=== PATIENT | female | born 1930 | race Caucasian/White ===

== ENCOUNTER 2016-06-02 15:13 | Emergency (ER) | payer MEDICARE ==
[~2016-06-02] VITALS: Ht 165.1 cm; Wt 70.0 kg
[~2016-06-02 15:13] MED LIST: ALTA1.256 PO; GLIM1 PO; LANO0.2510 PO; TOPR50TA PO
[2016-06-02 15:16] VITALS: BP 131/74; PULSE 73; RESP 20; TEMP 98.4; O2SAT 100
[2016-06-02] MEDS ORDERED: PANTOPRAZOLE SODIUM 40 MG VIAL IVP ONE (15:30)
[2016-06-02] MEDS ORDERED: SODIUM CHLORIDE 0.9% FLUSH 5 ML FLUSH IVF PRN (15:30)
[2016-06-02] MEDS ORDERED: SPIR25TA PO (15:40)
[2016-06-02] MEDS ORDERED: GLIM1TAB PO (15:40)
[2016-06-02] MEDS ORDERED: DIGO0.25 PO (15:40)
[2016-06-02] MEDS ORDERED: METO25TA6 PO (15:40)
[2016-06-02 15:41] VITALS: BP 148/62; PULSE 70; RESP 18; O2SAT 99
[2016-06-02 15:45] VITALS: O2SAT 99
--- NOTE | 2016-06-02 15:45 | PD ---
HPI . Black tarry stools Chief Complaint: GI Complaint Time Seen by Provider: 15:25 Travel History International Travel<30 days: No Contact w/Intl Traveler<30days: No Traveled to known affect area: No History of Present Illness HPI Patient presents with black tarry stools which started yesterday. She reports approximately 8 stools. She denies any associated symptoms such as abdominal pain, vomiting, dizziness, chest pain or shortness of breath. She does report a prior previous similar episode. She was evaluated in [place]. She also states she has a history of iron deficiency anemia and receives IV ferritin periodically. She states that she is not on oral iron. PFSH Past Medical History Atrial Fibrillation: Yes Heart Rhythm Problems: Yes Cancer: Yes (left breast 1998) Chemotherapy: No Diabetes: Yes Radiation Therapy: No Menopausal: Yes Past Surgical History Gynecologic Surgery: Yes (left mastectomy breast cancer) Hysterectomy: Yes Social History Alcohol Use: No Tobacco Use: No Substance Use: No Allergies-Medications (Allergen,Severity, Reaction): Coded Allergies: Penicillin (Verified Allergy, Severe, UNKNOWN REACTION, 06/28/14) Sulfa (Verified Allergy, Severe, Anaphylaxis, 06/28/14) Aspirin (Verified Allergy, Unknown, LOW PLATELT COUNT , 06/02/16) Levaquin (Verified Allergy, Unknown, STOP BREATHING, 06/02/16) Reported Meds & Prescriptions Reported Meds & Active Scripts Active Prilosec (Omeprazole) 20 Mg Cap 20 Mg PO DAILY Reported Furosemide 20 Mg Tab 20 Mg PO DAILY Metoprolol Succinate ER 24 HR (Metoprolol Succinate) 25 Mg Tab 25 Mg PO BID Spironolactone 25 Mg Tab 25 Mg PO BIDPC Glimepiride 1 Mg Tab 2 Mg PO DAILY PRN Take with breakfast or first main meal Digoxin 0.25 Mg Tab 0.125 Mg PO DAILY Review of Systems Except as stated in HPI: all other systems reviewed are Neg General / Constitutional: No: Fever, Chills HENT: No: Headaches Cardiovascular: No: Chest Pain or Discomfort Respiratory: No: Shortness of Breath Gastrointestinal: Positive: Other (black stools), No: Nausea, Vomiting, Diarrhea, Abdominal Pain, Constipation, Changes in Bowel Habits, Indigestion Neurologic: No: Weakness, Dizziness Physical Exam Narrative GENERAL: Healthy-appearing older woman in no acute distress. SKIN: Warm and dry. HEAD: Atraumatic. Normocephalic. EYES: Pupils equal and round. Conjunctivae are pink ENT: No nasal bleeding or discharge. Mucous membranes pink and moist. NECK: Trachea midline. Neck is supple. CARDIOVASCULAR: Regular rate and rhythm. Heart sounds are normal. RESPIRATORY: No accessory muscle use. Lungs are clear with full air movement throughout. GASTROINTESTINAL: Abdomen soft, non-tender, nondistended. MUSCULOSKELETAL: No obvious deformities. No edema. NEUROLOGICAL: Awake and alert. No obvious cranial nerve deficits. Motor grossly within normal limits. Normal speech. PSYCHIATRIC: Appropriate mood and affect; insight and judgment normal. Data Data Last Documented VS Vital Signs Date Time Temp Pulse Resp B/P Pulse Ox O2 Delivery O2 Flow Rate FiO2 06/02/16 16:10 66 18 119/56 95 Room Air 06/02/16 15:16 98.4 Orders Basic Metabolic Panel (Bmp) (06/02/16 15:26) Complete Blood Count With Diff (06/02/16 15:26) Prothrombin Time / Inr (Pt) (06/02/16 15:26) Act Partial Throm Time (Ptt) (06/02/16 15:26) Type And Screen (06/02/16 15:26) Ecg Monitoring (06/02/16 15:26) Iv Access Insert/Monitor (06/02/16 15:26) Oximetry (06/02/16 15:26) Pantoprazole Inj (Protonix Inj) (06/02/16 15:30) Sodium Chloride 0.9% Flush (Ns Flush) (06/02/16 15:30) Ct Abd/Pel W Iv Contrast(Rout) (06/02/16 15:40) Iohexol 350 Inj (Omnipaque 350 Inj) (06/02/16 17:18) Radiology Film Requests (06/02/16 ) Labs Laboratory Tests Test 06/02/16 15:57 White Blood Count 3.8 TH/MM3 Red Blood Count 4.34 MIL/MM3 Hemoglobin 11.1 GM/DL Hematocrit 34.5 % Mean Corpuscular Volume 79.4 FL Mean Corpuscular Hemoglobin 25.6 PG Mean Corpuscular Hemoglobin 32.3 % Concent Red Cell Distribution Width 22.1 % Platelet Count 74 TH/MM3 Mean Platelet Volume 8.9 FL Neutrophils (%) (Auto) 62.0 % Lymphocytes (%) (Auto) 27.5 % Monocytes (%) (Auto) 8.5 % Eosinophils (%) (Auto) 1.5 % Basophils (%) (Auto) 0.5 % Neutrophils # (Auto) 2.4 TH/MM3 Lymphocytes # (Auto) 1.0 TH/MM3 Monocytes # (Auto) 0.3 TH/MM3 Eosinophils # (Auto) 0.1 TH/MM3 Basophils # (Auto) 0.0 TH/MM3 CBC Comment AUTO DIFF Differential Comment AUTO DIFF CONFIRMED Platelet Estimate LOW Prothrombin Time 12.9 SEC Prothromb Time International 1.2 RATIO Ratio Activated Partial 26.6 SEC Thromboplast Time Sodium Level 142 MEQ/L Potassium Level 3.7 MEQ/L Chloride Level 105 MEQ/L Carbon Dioxide Level 28.7 MEQ/L Anion Gap 8 MEQ/L Blood Urea Nitrogen 5 MG/DL Creatinine 0.71 MG/DL Estimat Glomerular Filtration 79 ML/MIN Rate Random Glucose 143 MG/DL Calcium Level 8.4 MG/DL Blood Type A NEGATIVE Antibody Screen NEGATIVE MDM Medical Decision Making Medical Screen Exam Complete: Yes Emergency Medical Condition: Yes Differential Diagnosis Differential diagnosis includes but is not limited to black stools due to food or medication, upper GI bleed Narrative Course Patient presents for evaluation of black stools. She appears hemodynamically stable at this time. CBC & BMP Diagram 06/02/16 15:57 This H&H is actually pretty stable for her. Patient has been in the emergency department for a couple of hours now. She is very spry. She has been up walking around her room through her medical records that she brought with her from [place]. She does not appear to be in any distress at all. Last Impressions Abdomen/Pelvis CT 06/02/16 1540 Signed Impressions: Service Date/Time: Thursday, June 02, 2016 16:44 - CONCLUSION: 1. Diverticulosis. Evaluation for diverticulitis is limited due to ascites. 2. Cirrhosis with small moderate amount of abdominal ascites and portal hypertension. 3. Minimally complex cystic lesion in the right lobe of the liver , likely benign. Luis Younger MD [facility] Point of Care Internal Pos. & Neg. Controls: Passed Fecal Specimen Occult Blood: Positive Diagnosis Primary Impression: GI bleed Qualified Code: K92.2 - Gastrointestinal hemorrhage, unspecified gastrointestinal hemorrhage type Patient Instructions: General Instructions Additional Instructions: Avoid aspirin and other nonsteroidal anti-inflammatory agent such as ibuprofen and Naprosyn. You may take aspirin as needed for your heart. Nexium as directed. Seek immediate medical care for heavy bleeding or if you become weak or dizzy or you develop chest pain or shortness of breath. Follow-up with your doctor in [place] further evaluation. Scripts Omeprazole (Prilosec)20 Mg Cap20 Mg PO DAILY #30 CAP Ref 0 Prov:Sabrina Clarke MD 06/02/16 Disposition: 01 DISCHARGE HOME Condition: Stable Sabrina Clarke MD Jun 02, 2016 15:44
[2016-06-02 16:10] VITALS: BP 119/56; PULSE 66; RESP 18; O2SAT 95
[2016-06-02 16:11] LABS: AUTOMATED NEUTROPHIL # 2.4 TH/MM3 (1.8-7.7); BASOPHIL % 0.5 % (0.0-2.0); EOSINOPHIL # 0.1 TH/MM3 (0-0.4); EOSINOPHIL % 1.5 % (0.0-4.0); HEMATOCRIT 34.5 % (35.0-46.0); LYMPH % 27.5 % (9.0-44.0); MEAN CELL VOLUME 79.4 FL (80.0-100.0); MEAN CORPUSCULAR HEMOGLOBIN 25.6 PG (27.0-34.0); MEAN CORPUSCULAR HGB CONC 32.3 % (32.0-36.0); MONO % 8.5 % (0.0-8.0); PLATELET COUNT 74 TH/MM3 (150-450); RED BLOOD COUNT 4.34 MIL/MM3 (4.00-5.30); RED CELL DISTRIBUTION WIDTH 22.1 % (11.6-17.2); WHITE BLOOD COUNT 3.8 TH/MM3 (4.0-11.0)
[2016-06-02 16:12] LABS: HEMO FLAGS AUTO DIFF
[2016-06-02 16:19] LABS: POTASSIUM 3.7 MEQ/L (3.5-5.1)
[2016-06-02 16:22] LABS: BICARBONATE 28.7 MEQ/L (21.0-32.0)
[2016-06-02 16:23] LABS: APTT (PATIENT) 26.6 SEC (24.3-30.1); INTERNATIONAL NORMALIZED RATIO 1.2 RATIO; PROTHROMBIN TIME - PATIENT 12.9 SEC (9.8-11.6)
[2016-06-02 16:58] LABS: PLATELET ESTIMATE SMEAR LOW (NORMAL); SCAN/DIFF AUTO DIFF CONFIRMED
[2016-06-02] MEDS ORDERED: FURO20TA PO (17:06)
[2016-06-02] MEDS ORDERED: IOHEXOL 350 MG/ML 10 ML VIAL (for RAD DIAG) IV ONE (17:18)
[2016-06-02] MEDS ORDERED: PRIL20CA9 PO (17:24)
--- NOTE | 2016-06-02 17:27 | RADHPO ---
EXAM DATE/TIME: 06/02/2016 16:44 [facility] COMPARISON: No previous studies available for comparison. INDICATIONS : Blood in stool. IV CONTRAST: 75 cc Omnipaque 350 (iohexol) IV ORAL CONTRAST: No oral contrast ingested. RADIATION DOSE: 14.56 CTDIvol (mGy) MEDICAL HISTORY : Diabetes mellitus type 2. Cardiovascular disease Carcinoma, breast. SURGICAL HISTORY : Mastectomy, left. Hysterectomy. ENCOUNTER: Initial ACUITY: 1 day PAIN SCALE: 0/10 LOCATION: Bilateral lower quadrant TECHNIQUE: Volumetric scanning of the abdomen and pelvis was performed. Using automated exposure control and ad justment of the mA and/or kV according to patient size, radiation dose was kept as low as reasonably achievable to obtain optimal diagnostic quality images. FINDINGS: LOWER LUNGS: The visualized lower lungs are clear. LIVER: Shrunken cirrhotic liver. Minimally complex low density lesion posterior segment right lobe measures 1.7 cm. Few other subcentimeter low densities.. There is no dilation of the biliary tree. No calcif ied gallstones. Small moderate ascites. Upper quadrant varices. Recanalization umbilical vein. SPLEEN: Mildly enlarged containing calcified granulomas. PANCREAS: Within normal limits. KIDNEYS: Normal in size and shape. There is no mass, stone or hydronephrosis. ADRENAL GLANDS: Within normal limits. VASCULAR: There is no aortic aneurysm. BOWEL/MESENTERY: One without diverticulitis. There is no free intraperitoneal air or fluid. ABDOMINAL WALL: Within normal limits. RETROPERITONEUM: There is no lymphadenopathy. BLADDER: No wall thickening or mass. REPRODUCTIVE: Within normal limits. INGUINAL: There is no lymphadenopathy or hernia. MUSCULOSKELETAL: Within normal limits for patient age. CONCLUSION: 1. Diverticulosis. Evaluation for diverticulitis is limited due to ascites. 2. Cirrhosis with small moderate amount of abdominal ascites and portal hypertension. 3. Minimally complex cystic lesion in the right lobe of the liver, likely benign. Luis Younger MD on June 02, 2016 at 17:19 Board Certified Radiologist. This report was verified electronically.
== END 2016-06-02 17:53 | disposition home or self-care (01) ==
LOC: PHED 15:13
DX: K92.2 Gastrointestinal hemorrhage, unspecified (principal); K57.90 Diverticulosis of intestine, part unspecified, without perforation or abscess without bleeding; K74.60 Unspecified cirrhosis of liver; R18.8 Other ascites; E11.9 Type 2 diabetes mellitus without complications; Z79.84 Long term (current) use of oral hypoglycemic drugs; Z86.2 Personal history of diseases of the blood and blood-forming organs and certain disorders involving the immune mechanism; Z86.79 Personal history of other diseases of the circulatory system; Z85.3 Personal history of malignant neoplasm of breast
CPT/HCPCS: 74177; 80048; 85025; 85610; 85730; 86850; 86900; 86901; 96374; 99285; C9113; Q9967

== ENCOUNTER 2016-08-04 08:25 | Observation (INO) | payer MEDICARE ==
[~2016-08-04] VITALS: Ht 162.6 cm; Wt 67.2 kg
[2016-08-04] VITALS (8 sets, daily range): BP systolic 112–147; BP diastolic 57–68; PULSE 65–72; RESP 16–18; TEMP 97–97.8; O2SAT 98–100
[~2016-08-04 08:25] MED LIST changes: -ALTA1.256 PO; +DIGO0.25 PO; +FURO20TA PO; -GLIM1 PO; +GLIM1TAB PO; -LANO0.2510 PO; +METO25TA6 PO; +PRIL20CA9 PO; +SPIR25TA PO; -TOPR50TA PO
[2016-08-04] MEDS ORDERED: SODIUM CHLORIDE 0.9% FLUSH 10 ML FLUSH IVF PRN (08:45)
[2016-08-04] MEDS ORDERED: NITROGLYCERIN 0.4 MG SL 25 TABS/BTL SL PRN (08:45)
--- NOTE | 2016-08-04 08:46 | PD ---
HPI Chief Complaint: Chest Pain Time Seen by Provider: 08:30 Travel History International Travel<30 days: No Contact w/Intl Traveler<30days: No History of Present Illness HPI 85yo F with PMH of DM, HTN, afib on digoxin presents to the ED with c/o left sided chest pain when she woke up this morning at 5:15am. Pt is left sided, intermittent, lasting few seconds at a time and nonradiating. Denies any sob, nausea, diaphoresis, focal weakness or numbness, fever, abdominal pain. Pt has been coughing more. Former cig smoker. Pt states she has not had similar chest pains and has not had any stress test. 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 PFSH Past Medical History Atrial Fibrillation: Yes Heart Rhythm Problems: Yes Cancer: Yes (left breast 1999) Chemotherapy: No Diabetes: Yes Radiation Therapy: No Menopausal: Yes Past Surgical History Gynecologic Surgery: Yes (left mastectomy breast cancer) Hysterectomy: Yes Social History Alcohol Use: No Tobacco Use: No Substance Use: No Allergies-Medications (Allergen,Severity, Reaction): Coded Allergies: Penicillin (Verified Allergy, Severe, UNKNOWN REACTION, 08/04/16) Sulfa (Verified Allergy, Severe, Anaphylaxis, 08/04/16) Aspirin (Verified Allergy, Unknown, LOW PLATELT COUNT , 08/04/16) Levaquin (Verified Allergy, Unknown, STOP BREATHING, 08/04/16) Reported Meds & Prescriptions Reported Meds & Active Scripts Active Prilosec (Omeprazole) 20 Mg Cap 20 Mg PO DAILY Reported Furosemide 20 Mg Tab 20 Mg PO DAILY Metoprolol Succinate ER 24 HR (Metoprolol Succinate) 25 Mg Tab 25 Mg PO BID Spironolactone 25 Mg Tab 25 Mg PO BIDPC Glimepiride 1 Mg Tab 2 Mg PO DAILY PRN Take with breakfast or first main meal Digoxin 0.25 Mg Tab 0.125 Mg PO DAILY Review of Systems Except as stated in HPI: all other systems reviewed are Neg Physical Exam Narrative GENERAL: 85yo F not in distress. SKIN: Focused skin assessment warm/dry. HEAD: Atraumatic. Normocephalic. EYES: Pupils equal and round. No scleral icterus. No injection or drainage. ENT: No nasal bleeding or discharge. Mucous membranes pink and moist. NECK: Trachea midline. No JVD. CARDIOVASCULAR: Regular rate and rhythm. + murmur appreciated. CHEST WALL: No rash, erythema or ttp. RESPIRATORY: No accessory muscle use. Clear to auscultation. Breath sounds equal bilaterally. GASTROINTESTINAL: Abdomen soft, non-tender, nondistended. MUSCULOSKELETAL: No obvious deformities. No clubbing. No cyanosis. No edema. NEUROLOGICAL: Awake and alert. No obvious cranial nerve deficits. Motor grossly within normal limits. Normal speech. PSYCHIATRIC: Appropriate mood and affect; insight and judgment normal. Data Data Last Documented VS Vital Signs Date Time Temp Pulse Resp B/P Pulse Ox O2 Delivery O2 Flow Rate FiO2 08/04/16 09:46 69 16 136/57 100 Nasal Cannula 2 08/04/16 08:41 97.8 Orders Basic Metabolic Panel (Bmp) (08/04/16 08:39) Ckmb (Isoenzyme) Profile (08/04/16 08:39) Complete Blood Count With Diff (08/04/16 08:39) Digoxin (08/04/16 08:39) Magnesium (Mg) (08/04/16 08:39) Prothrombin Time / Inr (Pt) (08/04/16 08:39) Act Partial Throm Time (Ptt) (08/04/16 08:39) Troponin I (08/04/16 08:39) Chest, Single Ap (08/04/16 08:39) Ecg Monitoring (08/04/16 08:39) Bilateral Bp Monitoring (08/04/16 08:39) Iv Access Insert/Monitor (08/04/16 08:39) Oximetry (08/04/16 08:39) Oxygen Administration (08/04/16 08:39) Sodium Chloride 0.9% Flush (Ns Flush) (08/04/16 08:45) Nitroglycerin Sl (Nitrostat Sl) (08/04/16 08:45) CKMB (08/04/16 08:40) CKMB% (08/04/16 08:40) Admit Order (Ed Use Only) (08/04/16 09:58) Labs Laboratory Tests Test 08/04/16 08:40 White Blood Count 5.4 TH/MM3 Red Blood Count 4.65 MIL/MM3 Hemoglobin 12.4 GM/DL Hematocrit 37.9 % Mean Corpuscular Volume 81.6 FL Mean Corpuscular Hemoglobin 26.8 PG Mean Corpuscular Hemoglobin 32.8 % Concent Red Cell Distribution Width 16.6 % Platelet Count 91 TH/MM3 Mean Platelet Volume 9.1 FL Neutrophils (%) (Auto) 75.3 % Lymphocytes (%) (Auto) 14.7 % Monocytes (%) (Auto) 8.4 % Eosinophils (%) (Auto) 0.8 % Basophils (%) (Auto) 0.8 % Neutrophils # (Auto) 4.1 TH/MM3 Lymphocytes # (Auto) 0.8 TH/MM3 Monocytes # (Auto) 0.5 TH/MM3 Eosinophils # (Auto) 0.0 TH/MM3 Basophils # (Auto) 0.0 TH/MM3 CBC Comment AUTO DIFF Differential Comment AUTO DIFF CONFIRMED Platelet Estimate LOW Platelet Morphology Comment NORMAL Tear Drop Cells Ovalocytes 1+ Prothrombin Time 12.3 SEC Prothromb Time International 1.1 RATIO Ratio Activated Partial 26.0 SEC Thromboplast Time Sodium Level 139 MEQ/L Potassium Level 4.0 MEQ/L Chloride Level 105 MEQ/L Carbon Dioxide Level 27.3 MEQ/L Anion Gap 7 MEQ/L Blood Urea Nitrogen 10 MG/DL Creatinine 0.76 MG/DL Estimat Glomerular Filtration 73 ML/MIN Rate Random Glucose 154 MG/DL Calcium Level 8.8 MG/DL Magnesium Level 1.7 MG/DL Total Creatine Kinase 111 U/L Creatine Kinase MB 0.8 NG/ML Troponin I LESS THAN 0.02 NG/ML Digoxin Level 2.2 NG/ML [facility] Medical Decision Making Medical Screen Exam Complete: Yes Emergency Medical Condition: Yes Interpretation(s) EKG: NSR 68bpm. LAD. 1st AV block. Mild ST depression V4-V6. Vital Signs Date Time Temp Pulse 16 136/57 100 Nasal Cannula 2 08/04/16 08:56 16 99 Nasal Cannula 2 08/04/16 08:53 16 99 Nasal Cannula 2 08/04/16 08:53 99 Nasal Cannula 2 08/04/16 08:51 72 16 137/68 98 Room Air 131/62 08/04/16 08:41 97.8 70 16 147/67 100 Last Impressions Chest X-Ray 08/04/16 0839 Signed Impressions: Service Date/Time: Thursday, August 04, 2016 09:09 - CONCLUSION: No acute cardiopulmonary abnormality is identified. William Faustin MD Differential Diagnosis ACS vs. pneumonia vs. musculoskeletal pain vs. GERD Narrative Course 85yo F with afib, HTN here with left sided chest pain upon waking up today. Labs reviewed, no leukocytosis. Troponin negative. Digoxin mildly elevated at 2.2. CXR showed no acute cardiopulmonary abnormality. Pt is allergic to aspirin and ordered nitroglycerin sublingual PRN chest pain. VS stable. Discussed with Dr. Davis and accepted to his service for chest pain work up. Diagnosis Primary Impression: Chest pain Qualified Code: R07.9 - Chest pain, unspecified type Admitting Information Admitting Physician Requests: Aby Escobar DO Aug 04, 2016 08:46
[2016-08-04 08:53] LABS: AUTOMATED NEUTROPHIL # 4.1 TH/MM3 (1.8-7.7); BASOPHIL % 0.8 % (0.0-2.0); EOSINOPHIL % 0.8 % (0.0-4.0); HEMATOCRIT 37.9 % (35.0-46.0); LYMPH % 14.7 % (9.0-44.0); LYMPHOCYTE # 0.8 TH/MM3 (1.0-4.8); MEAN CELL VOLUME 81.6 FL (80.0-100.0); MEAN CORPUSCULAR HEMOGLOBIN 26.8 PG (27.0-34.0); MEAN CORPUSCULAR HGB CONC 32.8 % (32.0-36.0); MONO % 8.4 % (0.0-8.0); NEUT % 75.3 % (16.0-70.0); PLATELET COUNT 91 TH/MM3 (150-450); RED BLOOD COUNT 4.65 MIL/MM3 (4.00-5.30); RED CELL DISTRIBUTION WIDTH 16.6 % (11.6-17.2); WHITE BLOOD COUNT 5.4 TH/MM3 (4.0-11.0)
[2016-08-04 08:55] LABS: HEMO FLAGS AUTO DIFF
[2016-08-04 09:01] LABS: CHLORIDE 105 MEQ/L (98-107); SODIUM (NA) 139 MEQ/L (136-145)
[2016-08-04 09:04] LABS: ANION GAP 7 MEQ/L (5-15); BICARBONATE 27.3 MEQ/L (21.0-32.0); BLOOD UREA NITROGEN 10 MG/DL (7-18); MAGNESIUM 1.7 MG/DL (1.5-2.5)
[2016-08-04 09:06] LABS: INTERNATIONAL NORMALIZED RATIO 1.1 RATIO; PROTHROMBIN TIME - PATIENT 12.3 SEC (9.8-11.6)
[2016-08-04 09:07] LABS: GLOMERULAR FILTRATION RATE 73 ML/MIN (>89)
[2016-08-04 09:10] LABS: CREATINE KINASE 111 U/L (26-192)
[2016-08-04 09:19] LABS: OVALOCYTES 1+ (NORMAL); PLATELET ESTIMATE SMEAR LOW (NORMAL); PLATELET MORPHOLOGY NORMAL (NORMAL); SCAN/DIFF AUTO DIFF CONFIRMED
[2016-08-04 09:22] LABS: CKMB 0.8 NG/ML (0.5-3.6)
[2016-08-04 09:25] LABS: DIGOXIN 2.2 NG/ML (0.8-2.0)
--- NOTE | 2016-08-04 09:26 | RADHPO ---
EXAM DATE/TIME: 08/04/2016 09:09 [facility] COMPARISON: No previous studies available for comparison. INDICATIONS : Chest pressure/discomfort. MEDICAL HISTORY : Hypertension. Carcinoma, breast. A-Fib SURGICAL HISTORY : Tonsillectomy. Mastectomy, left. Total knee replacement, left. Hysterectomy. Lumpectomy. ENCOUNTER: Initial ACUITY: 1 day PAIN SCORE: 7/10 LOCATION: chest FINDINGS: Portable AP view of the chest demonstrates a normal-sized cardiac silhouette with calcification of th e aorta. No effusion, consolidation, or pneumothorax is visualized. The bones and soft tissues demons trate no acute abnormality. CONCLUSION: No acute cardiopulmonary abnormality is identified. William Faustin MD on August 04, 2016 at 9:23 Board Certified Radiologist. This report was verified electronically.
[2016-08-04] MEDS ORDERED: ACETAMINOPHEN 500 MG CPLT PO PRN (10:15)
[2016-08-04] MEDS ORDERED: MORPHINE SULFATE 4 MG/ML INJ IV PRN (10:15)
[2016-08-04] MEDS ORDERED: SODIUM CHLORIDE 0.9% FLUSH 10 ML FLUSH IV FLUSH PRN (10:15)
[2016-08-04] MEDS ORDERED: ENOXAPARIN SODIUM 100 MG/ML SYRINGE SQ SCH (11:00)
--- NOTE | 2016-08-04 13:24 | EKG ---
Date Performed: 08/04/2016 Time Performed: 08:31:00 PTAGE: 85 years EKG: Sinus rhythm with borderline 1st degree A-V block Inferior/lateral ST-T changes are nonspecific Borderline ECG NO PREVIOUS TRACING DOCTOR: Vladimir Palmer Interpretating Date/Time 08/04/2016 13:22:00
[2016-08-04 13:58] LABS: CREATINE KINASE 106 U/L (26-192)
--- NOTE | 2016-08-04 14:27 | HHI.HP ---
[facility] Service [facility] Primary Care Physician Non-Staff Admission Diagnosis Chest pain Diagnoses: (1) Chest pain Diagnosis: Principal (2) Hypertension Diagnosis: Secondary (3) Atrial fibrillation Diagnosis: Secondary (4) Diabetes Diagnosis: Secondary Chief Complaint: Chest pain Travel History International Travel<30 Days: No Contact w/Intl Traveler <30 Da: No Traveled to Known Affected Are: No History of Present Illness 85-year-old female with known history of hypertension, chronic atrial fibrillation, diabetes, family history heart disease who presented to hospital because of chest discomfort. Patient states that she woke up at 5:00 this morning and while she is lying in bed she felt a discomfort in the left side of her chest which she can't actually describe the type of pain, she states that it was not a sharp, pressure, squeezing type sensation. She could feel a discomfort in the left side of her chest without any radiation to the neck, back , shoulder, arm, she denied any nausea, vomiting, diaphoresis, shortness of breath, dyspnea. She states the pain will last for a couple seconds and then go away on its own. She states that that happened persistently throughout the morning. Because the pain would not go away and stay away she came to the hospital for evaluation. 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 She does not remember the last time that she had a stress test. Patient has been packing in preparation to go back to [place]. At the time evaluating patient she is asymptomatic. Review of Systems Constitutional: DENIES: Diaphoretic episodes, Fatigue, Fever, Weight gain, Weight loss, Chills, Dizziness, Change in appetite, Night Sweats Eyes: DENIES: Blurred vision, Diplopia, Eye inflammation, Eye pain, Vision loss , Double Vision Ears, nose, mouth, throat: DENIES: Vertigo, Nasal discharge, Throat pain, Ear Pain, Running Nose, Sinus Pain Respiratory: DENIES: Apneas, Cough, Snoring, Wheezing, Hemoptysis, Sputum production, Shortness of breath Cardiovascular: COMPLAINS OF: Chest pain, Claudication, DENIES: Palpitations, Syncope, Dyspnea on Exertion, Lower Extremity Edema, Orthopnea Gastrointestinal: DENIES: Abdominal pain, Black stools, Bloody stools, Constipation, Diarrhea, Nausea, Vomiting, Difficulty Swallowing, Anorexia Neurologic: DENIES: Abnormal gait, Headache, Localized weakness, Paresthesias, Seizures, Speech Problems, Tremor, Poor Balance Past Family Social History Past Medical History Hypertension Chronic atrial fibrillation Diabetes History of breast cancer Chemotherapy-induced cirrhosis Thrombocytopenia Iron deficient anemia Past Surgical History Left breast mastectomy Cataract surgery Left knee replacement Hysterectomy Tonsillectomy Reported Medications Reported Meds & Active Scripts Active Prilosec (Omeprazole) 20 Mg Cap 20 Mg PO DAILY Reported Furosemide 20 Mg Tab 20 Mg PO DAILY Metoprolol Succinate ER 24 HR (Metoprolol Succinate) 25 Mg Tab 25 Mg PO BID Spironolactone 25 Mg Tab 25 Mg PO BIDPC Glimepiride 1 Mg Tab 2 Mg PO DAILY PRN Take with breakfast or first main meal Digoxin 0.25 Mg Tab 0.125 Mg PO DAILY Allergies: Coded Allergies: Penicillin (Verified Allergy, Severe, UNKNOWN REACTION, 08/04/16) Sulfa (Verified Allergy, Severe, Anaphylaxis, 08/04/16) Aspirin (Verified Allergy, Unknown, LOW PLATELT COUNT , 08/04/16) Levaquin (Verified Allergy, Unknown, STOP BREATHING, 08/04/16) Family History Reviewed and significant for cancer, heart disease, myocardial infarction, coronary bypass surgery Social History Patient quit smoking when she is 42 years old, prior to that she smoked for 21 years at least 1 pack a cigarettes a day. She denies any alcohol or illicit drugs Physical Exam Vital Signs Vital Signs Date Time Temp Pulse Resp B/P Pulse Ox O2 Delivery O2 Flow Rate FiO2 08/04/16 12:00 97.0 72 18 135/64 99 08/04/16 09:46 69 16 136/57 100 Nasal Cannula 2 08/04/16 08:56 16 99 Nasal Cannula 2 08/04/16 08:53 16 99 Nasal Cannula 2 08/04/16 08:53 99 Nasal Cannula 2 08/04/16 08:51 72 16 137/68 98 Room Air 131/62 08/04/16 08:41 97.8 70 16 147/67 100 Physical Exam GENERAL: Well-developed, well-nourished, in no acute distress. alert and orientated HEENT: Head is normocephalic without any lesions or masses noted. Facial features are symmetric. Eyes: Pupils equal round reactive to light. Extraocular muscles are intact. Conjunctivae were clear. Oropharyngeal: Pharynx without any erythema edema. Tongue is midline without deviation. Buccal mucosa is moist without any masses or lesions NECK: Supple without any masses. Trachea midline no deviation. No JVD, no bruits are appreciated CARDIAC: Regular rhythm, regular rate. S1/S2 are heard. No murmurs gallops or rubs. LUNGS: Clear to auscultation bilaterally. No wheeze, rhonchi or rales. No use of accessory muscles on inspiration or expiration. ABDOMEN: Soft, nontender. Nondistended. Bowel sounds heard in all 4 quadrants. No organomegaly or masses. Negative rebound, negative guarding EXTREMITIES: No edema, pulses are equal bilaterally. No cyanosis or clubbing NEUROLOGY: Mood and affect appear appropriate. Cranial nerves II through XII grossly intact. Muscle strength 5/5 in upper and lower extremities bilaterally. Deep tendon reflexes are 2+ in upper and lower extremities bilaterally. Laboratory Laboratory Tests Test 08/04/16 08/04/16 08:40 13:30 White Blood Count 5.4 Red Blood Count 4.65 Hemoglobin 12.4 Hematocrit 37.9 Mean Corpuscular Volume 81.6 Mean Corpuscular Hemoglobin 26.8 Mean Corpuscular Hemoglobin 32.8 Concent Red Cell Distribution Width 16.6 Platelet Count 91 Mean Platelet Volume 9.1 Neutrophils (%) (Auto) 75.3 Lymphocytes (%) (Auto) 14.7 Monocytes (%) (Auto) 8.4 Eosinophils (%) (Auto) 0.8 Basophils (%) (Auto) 0.8 Neutrophils # (Auto) 4.1 Lymphocytes # (Auto) 0.8 Monocytes # (Auto) 0.5 Eosinophils # (Auto) 0.0 Basophils # (Auto) 0.0 CBC Comment AUTO DIFF Differential Comment AUTO DIFF CONFIRMED Platelet Estimate LOW Platelet Morphology Comment NORMAL Tear Drop Cells Ovalocytes 1+ Prothrombin Time 12.3 Prothromb Time International 1.1 Ratio Activated Partial 26.0 Thromboplast Time Sodium Level 139 Potassium Level 4.0 Chloride Level 105 Carbon Dioxide Level 27.3 Anion Gap 7 Blood Urea Nitrogen 10 Creatinine 0.76 Estimat Glomerular Filtration 73 Rate Random Glucose 154 Calcium Level 8.8 Magnesium Level 1.7 Total Creatine Kinase 111 106 Creatine Kinase MB 0.8 Troponin I LESS THAN 0.02 LESS THAN 0.02 Digoxin Level 2.2 Result Diagram: 08/04/16 0840 08/04/16 0840 Imaging Last Impressions Chest X-Ray 08/04/16 0839 Signed Impressions: Service Date/Time: Thursday, August 04, 2016 09:09 - CONCLUSION: No acute cardiopulmonary abnormality is identified. William Faustin MD Assessment and Plan Assessment and Plan 85-year-old male with known history of hypertension, chronic atrial fibrillation, chemotherapy-induced cirrhosis, pancytopenia who presented to hospital because of chest discomfort. Chest pain, atypical Patient with increased risk factors to include age, hypertension, diabetes, family history of heart disease, recent life stressors with in the family We'll continue to rule out for any acute coronary event with serial cardiac enzymes and serial EKGs We'll pursue nuclear stress test tomorrow a.m. if patient has been ruled out for acute coronary event Patient is allergic to aspirin, does have thrombocytopenia. Will continue nitroglycerin as needed. Continue metoprolol Hypertension/atrial fibrillation Continue home medication to include metoprolol, digoxin Diabetes Accu-Cheks with sliding scale insulin Hold by mouth medications at this time DVT prevention sequential compression devices Written by Blanco Ott, acting as scribe for Dr. De on 08/04/16 at 14:27. This note was transcribed by scribe Blanco Ott. I, Dr. Blanco De personally performed the history, physical exam, and medical decision making; and confirmed the accuracy of the information in the transcribed note. Authenticated by Dr. Blanco De on 08/11/16 at 07:31. 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
[2016-08-04] MEDS ORDERED: GLUCAGON 1 MG/ML VIAL OTHER PRN (14:30)
[2016-08-04] MEDS ORDERED: DEXTROSE 50% IN WATER 50 ML VIAL(D50) IV PUSH PRN (14:30)
[2016-08-04] MEDS ORDERED: GLIMEPIRIDE 1 MG TAB PO PRN (14:30)
[2016-08-04] MEDS: INSULIN ASPART SUPPLEMENTAL SCALE SQ SCH ×2 (16:00→19:52)
[2016-08-04] MEDS: SPIRONOLACTONE 25 MG TAB PO SCH (18:39)
[2016-08-04] MEDS: METOPROLOL SUCCINATE 25 MG EXTENDED RELEASE TAB PO SCH (19:56)
[2016-08-04] MEDS: SODIUM CHLORIDE 0.9% FLUSH 10 ML FLUSH IV FLUSH SCH (19:56)
[2016-08-04 20:56] LABS: CREATINE KINASE 102 U/L (26-192)
[2016-08-05] VITALS: BP 121/61; PULSE 76; RESP 18; TEMP 97.6; O2SAT 97
[2016-08-05 04:00] VITALS: BP 119/64; PULSE 76; RESP 16; TEMP 97.9; O2SAT 96
[2016-08-05] MEDS: INSULIN ASPART SUPPLEMENTAL SCALE SQ SCH (06:28)
[2016-08-05 06:40] VITALS: PULSE 73
[2016-08-05 08:00] VITALS: BP 127/68; PULSE 68; RESP 18; TEMP 98.1; O2SAT 98
--- NOTE | 2016-08-05 08:34 | HHI.PR ---
Subjective Remarks Patient seen and examined today with Dr. Grace. Patient was seen today for follow-up on chest discomfort. Patient denies any recurrent chest pain while being in the hospital. Patient was seen with daughter at bedside. They are concerned about having stress test performed because of chronic medical illnesses, cirrhosis. They indicate that her doctors up in [place] avoid invasive procedures because of her medical conditions and they are also concerned about that at this time. Discussed with them extensively that the Lexiscan should not interfere in her liver disease. However, they would prefer not to have any testing performed at this time. We discussed with the patient and family the need to rule out any underlying ischemia with stress test, they do understand. They state that they plan on driving back to [place] tomorrow and they promised that they will make an appointment with her circulation analyst on Wednesday. Patient was counseled extensively on no strenuous activity, no driving, on her drive they should be aware of all hospitals and emergency departments on the Route in order to stop if she develops any recurrent symptoms. Objective Vitals Vital Signs Date Time Temp Pulse Resp B/P Pulse Ox O2 Delivery O2 Flow Rate FiO2 08/05/16 04:00 97.9 76 16 119/64 96 08/05/16 00:00 97.6 76 18 121/61 97 08/04/16 23:00 68 08/04/16 20:10 97.2 65 18 130/64 98 08/04/16 16:00 97.7 65 18 112/57 100 08/04/16 12:00 97.0 72 18 135/64 99 08/04/16 09:46 69 16 136/57 100 Nasal Cannula 2 08/04/16 08:56 16 99 Nasal Cannula 2 08/04/16 08:53 16 99 Nasal Cannula 2 08/04/16 08:53 99 Nasal Cannula 2 08/04/16 08:51 72 16 137/68 98 Room Air 131/62 08/04/16 08:41 97.8 70 16 147/67 100 I/O 08/04/16 08/04/16 08/04/16 08/05/16 08/05/16 08/05/16 07:00 15:00 23:00 07:00 15:00 23:00 Intake Total 700 ml 610 ml Balance 700 ml 610 ml Intake Oral 700 ml 610 ml # Voids 4 3 1 # Bowel Movements 0 Result Diagram: 08/04/16 0840 08/04/16 0840 Objective Remarks GENERAL: Well-developed, well-nourished, in no acute distress. alert and orientated HEENT: Head is normocephalic without any lesions or masses noted. Facial features are symmetric. Eyes: Extraocular muscles are intact. Conjunctivae were clear. NECK: Supple without any masses. Trachea midline no deviation. No JVD, CARDIAC: Regular rhythm, regular rate. S1/S2 are heard. No murmurs gallops or rubs. LUNGS: Clear to auscultation bilaterally. No wheeze, rhonchi or rales. No use of accessory muscles on inspiration or expiration. ABDOMEN: Soft, nontender. Nondistended. Bowel sounds heard in all 4 quadrants. No organomegaly or masses. Negative rebound, negative guarding EXTREMITIES: No edema, pulses are equal bilaterally. No cyanosis or clubbing NEUROLOGY: Mood and affect appear appropriate. Cranial nerves II through XII grossly intact. Moving all extremities, speech is clear Urinary Catheter: No Vascular Central Line Catheter: No A/P Problem List: (1) Chest pain ICD Code: R07.9 Status: Acute (2) Diabetes ICD Code: E11.9 Status: Chronic (3) Atrial fibrillation ICD Code: I48.91 Status: Chronic (4) Hypertension ICD Code: I10 Status: Chronic Assessment and Plan 85-year-old male with known history of hypertension, chronic atrial fibrillation, chemotherapy-induced cirrhosis, pancytopenia who presented to hospital because of chest discomfort. Chest pain, atypical Patient with increased risk factors to include age, hypertension, diabetes, family history of heart disease, recent life stressors with in the family Patient ruled out for acute coronary event with serial cardiac enzymes which were reviewed by myself and were negative. Serial EKGs were performed and reviewed by myself which showed sinus rhythm with anterior septal and lateral T-wave changes which are nonspecific without any acute changes Was planning to pursue nuclear stress test rule out any underlying ischemia. However family and patient are deferring that at this time. They would like to follow-up with their circulation analyst in [place] for further evaluation management Patient is allergic to aspirin, does have thrombocytopenia. Will continue nitroglycerin as needed. Continue metoprolol Hypertension/atrial fibrillation Continue home medication to include metoprolol, digoxin Diabetes Accu-Cheks with sliding scale insulin Hold by mouth medications at this time DVT prevention sequential compression devices Written by Blanco Ott, acting as scribe for Dr. Grace on 08/05/16 at 08: 36. This note was transcribed by scribe []. I, Dr. Luis Grace personally performed the history, physical exam, and medical decision making; and confirmed the accuracy of the information in the transcribed note. Authenticated by Dr. Luis Grace on 08/05/16 at 08:36. Discharge Planning Discharge home in good condition with instructions to follow-up with her primary doctor/circulation analyst once they arrive home. They're instructed to be aware of emergency department/hospitals in route just in case she does have recurrent symptoms Activity: No strenuous activity, no driving Diet: Diabetic diet Medications per medication reconciliation Follow-up primary medical doctor/circulation analyst Wednesday in [place] Problem Qualifiers (1) Chest pain: Qualified Code: R07.9 - Chest pain, unspecified type (2) Diabetes: Qualified Code: E11.8 - Type 2 diabetes mellitus with complication, unspecified terminal supervisor insulin use status (3) Atrial fibrillation: Qualified Code: I48.91 - Atrial fibrillation, unspecified type (4) Hypertension: Qualified Code: I15.9 - Secondary hypertension Blanco Ott Aug 05, 2016 08:34 Luis Grace MD Aug 05, 2016 09:13
[2016-08-05] MEDS ORDERED: NITR0.4S SL (08:38)
--- NOTE | 2016-08-05 08:38 | HHI.DCPOC ---
Discharge Care Plan Diagnosis: (1) Chest pain Goals to Promote Your Health * To prevent worsening of your condition and complications * To maintain your health at the optimal level Directions to Meet Your Goals Take your medications as prescribed Follow your dietary instruction Follow activity as directed Keep your appointments as scheduled Take your immunizations and boosters as scheduled If your symptoms worsen call your PCP, if no PCP go to Urgent Care Center or Emergency Room Smoking is Dangerous to Your Health. Avoid second hand smoke Call the 24-hour hour crisis hotline for domestic abuse at Blanco Ott Aug 05, 2016 08:38
[2016-08-05] MEDS ORDERED: DIGOXIN 0.25 MG TAB PO SCH (09:00)
[2016-08-05] MEDS ORDERED: PANTOPRAZOLE SOD 20 MG DELAYED RELEASE TAB PO SCH (09:00)
[2016-08-05] MEDS ORDERED: FUROSEMIDE 20 MG TAB PO SCH (09:00)
[2016-08-05] MEDS: SODIUM CHLORIDE 0.9% FLUSH 10 ML FLUSH IV FLUSH SCH (09:00)
[2016-08-05] MEDS ORDERED: PANTOPRAZOLE SOD 40 MG DELAYED RELEASE TAB PO SCH (09:00)
[2016-08-05] MEDS: METOPROLOL SUCCINATE 25 MG EXTENDED RELEASE TAB PO SCH (09:18)
[2016-08-05] MEDS: SPIRONOLACTONE 25 MG TAB PO SCH (09:19)
--- NOTE | 2016-08-05 11:00 | EKG ---
Date Performed: 08/04/2016 Time Performed: 20:11:16 PTAGE: 85 years EKG: Sinus rhythm . Ant/septal and lateral T wave changes Normal ECG PREVIOUS TRACING : 08/04/2016 13.24 Compared to prior tracing no significant change DOCTOR: Lori Romano Interpretating Date/Time 08/05/2016 10:59:34
--- NOTE | 2016-08-05 11:00 | EKG ---
Date Performed: 08/04/2016 Time Performed: 13:24:16 PTAGE: 85 years EKG: Sinus rhythm with 1st degree A-V block. rSr'(V1) - probable normal variant Ant/septal and lateral ST-T changes ma y be due to myocardial ischemia Abnormal ECG PREVIOUS TRACING : 08/04/2016 08.31 Compared to prior tracing no significant change DOCTOR: Lori Romano Interpretating Date/Time 08/05/2016 10:59:25
== END 2016-08-05 10:56 | disposition home or self-care (01) ==
LOC: PHED 08:25 → PHEDA 09:59 → PH3B 11:29
PROVIDERS: ADMIT Hospitalist; ATTEND Hospitalist
DX: R07.9 Chest pain, unspecified (principal); I48.2 Chronic atrial fibrillation; Z87.891 Personal history of nicotine dependence; R05 Cough; I10 Essential (primary) hypertension; Z85.3 Personal history of malignant neoplasm of breast; Z79.899 Other long term (current) drug therapy; Z79.84 Long term (current) use of oral hypoglycemic drugs; T45.1X5A Adverse effect of antineoplastic and immunosuppressive drugs, initial encounter; D50.9 Iron deficiency anemia, unspecified; K74.60 Unspecified cirrhosis of liver; E11.9 Type 2 diabetes mellitus without complications; R94.31 Abnormal electrocardiogram [ECG] [EKG]; I44.30 Unspecified atrioventricular block
CPT/HCPCS: 71010; 80048; 80162; 82550; 82552; 82948; 83735; 84484; 85025; 85610; 85730; 93005; 99285; G0378

== ENCOUNTER 2017-06-12 12:27 | Emergency (ER) | payer MEDICARE ==
[~2017-06-12] VITALS: Ht 162.6 cm; Wt 68.6 kg
[~2017-06-12 12:27] MED LIST changes: +METO1TAB42 PO; -METO25TA6 PO; +NITR0.4S SL
[2017-06-12 12:34] VITALS: BP 142/66; PULSE 71; RESP 16; TEMP 97.7; O2SAT 98
[2017-06-12] MEDS ORDERED: MUPI2OIN TOPICAL (12:46)
[2017-06-12] MEDS ORDERED: CLIN150C14 PO (12:46)
--- NOTE | 2017-06-12 12:53 | PD ---
HPI Chief Complaint: Laceration/Skin Injury Time Seen by Provider: 12:38 Travel History International Travel<30 days: No Contact w/Intl Traveler<30days: No Traveled to known affect area: No History of Present Illness HPI 86-year-old female that presents to the ED for evaluation of laceration to the right fifth digit. Patient states that she was cleaning a shredder that is practically new injections the car herself on the finger. Per patient she has low platelet she was concerned about the bleeding. She denies any other medical issues. She states that she believes she states that her tetanus and she comes here with her medical records that this showed that she had a tetanus booster in 2012. She denies any urinary or bowel movement issues. Pain per patient is minimal. Able to move the finger fully. Again she was more concerned about the bleeding. No other medical issues. She apply pressure by herself. PFSH Past Medical History Hx Anticoagulant Therapy: No Atrial Fibrillation: Yes Heart Rhythm Problems: Yes Cancer: Yes (left breast 1998) Cardiovascular Problems: Yes (HTN) Chemotherapy: No Diabetes: Yes Diminished Hearing: No Hypertension: Yes Radiation Therapy: No ?: Not Menopausal: Yes Past Surgical History Gynecologic Surgery: Yes (left mastectomy breast cancer) Hysterectomy: Yes Social History Alcohol Use: No Tobacco Use: No Substance Use: No Allergies-Medications (Allergen,Severity, Reaction): Coded Allergies: Sulfa (Sulfonamide Antibiotics) (Unverified Allergy, Severe, Anaphylaxis, 06/12/17) penicillin G (Unverified Allergy, Severe, UNKNOWN REACTION, 06/12/17) aspirin (Unverified Allergy, Unknown, LOW PLATELT COUNT , 06/12/17) levofloxacin (Unverified Allergy, Unknown, STOP BREATHING, 06/12/17) Reported Meds & Prescriptions Reported Meds & Active Scripts Active Clindamycin (Clindamycin HCl) 150 Mg Cap 300 Mg PO Q8HR 7 Days Nitrostat SL (Nitroglycerin) 0.4 Mg Subl 0.4 Mg SL DIRECTED PRN 1 tablet under the tongue as needed for chest pain. Repeat every 5 minutes for a total of 3 DOSES or call 911 if NO relief. Prilosec (Omeprazole) 20 Mg Cap 20 Mg PO DAILY Reported Furosemide 20 Mg Tab 20 Mg PO DAILY Metoprolol Succinate ER 24 HR (Metoprolol Succinate) 25 Mg Tab 25 Mg PO BID Spironolactone 25 Mg Tab 25 Mg PO BIDPC Glimepiride 1 Mg Tab 2 Mg PO DAILY PRN Take with breakfast or first main meal Digoxin 0.25 Mg Tab 0.125 Mg PO DAILY Review of Systems Except as stated in HPI: all other systems reviewed are Neg Physical Exam Narrative GENERAL: SKIN: Warm and dry. HEAD: Atraumatic. Normocephalic. EYES: Pupils equal and round. No scleral icterus. No injection or drainage. ENT: No nasal bleeding or discharge. Mucous membranes pink and moist. NECK: Trachea midline. No JVD. CARDIOVASCULAR: Regular rate and rhythm. RESPIRATORY: No accessory muscle use. Clear to auscultation. Breath sounds equal bilaterally. GASTROINTESTINAL: Abdomen soft, non-tender, nondistended. Hepatic and splenic margins not palpable. MUSCULOSKELETAL: Extremities without clubbing, cyanosis, or edema. No obvious deformities. Full range of motion of all fingers. Patient does have a superficial cut to the distal right fifth digit. Minimal bleeding noted. Well approximated. Good capillary refill. Sensation intact bilaterally. NEUROLOGICAL: Awake and alert. No obvious cranial nerve deficits. Motor grossly within normal limits. Five out of 5 muscle strength in the arms and legs. Normal speech. PSYCHIATRIC: Appropriate mood and affect; insight and judgment normal. Data Data Last Documented VS Vital Signs Date Time Temp Pulse Resp B/P (MAP) Pulse Ox O2 Delivery O2 Flow Rate FiO2 06/12/17 12:34 97.7 71 16 142/66 (91) 98 Orders Orders Wound Care (06/12/17 12:45) Ed Discharge Order (06/12/17 12:47) MDM Medical Decision Making Medical Screen Exam Complete: Yes Emergency Medical Condition: Yes Medical Record Reviewed: Yes Differential Diagnosis Laceration versus abrasion versus skin tear versus bleeding Narrative Course 86-year-old female that presents to the ED for evaluation of laceration to the right fifth digit. Patient was properly examined and was found to have signs and symptoms very consistent what appears to be superficial laceration. No sign of significant injury. Bleeding is currently under control. Patient has applied pressure and the bleeding has stopped. I do recommend wound care. Do not recommend suturing at this time as the wound itself is very superficial and will likely not benefit from suturing. Did recommend starting patient on antibiotics to start only if infection develops. Patient agrees and understands this. Wound care was done by health information tech. Patient was told to apply pressure to the wound for the next couple of days and the bleeding should stop in the next 48 hours. See ED worsening symptoms. Follow with PCP. Diagnosis Primary Impression: Finger laceration Qualified Codes: S61.216A - Laceration without foreign body of right little finger without damage to nail, initial encounter Patient Instructions: General Instructions Additional Instructions: Change dressings daily. Apply Neosporin [id number] to the wound. He can apply a Band-Aid once the bleeding stops in the next 48 hours. See ED for any worsening symptoms especially if bleeding becomes too significant. Follow-up with your doctor next week. Take antibiotic only signs of infection develop. Especially redness, pus. Med/Other Pt SpecificInfo: Prescription(s) given, Wound Care Scripts Clindamycin (Clindamycin) 150 Mg Cap 300 MG PO Q8HR for Infection for 7 Days, CAP 0 Refills Prov: Saman Mcgovern MD 06/12/17 Disposition: 01 DISCHARGE HOME Condition: Stable Martin Gonzalez Jun 12, 2017 12:53
[2017-06-12] MEDS ORDERED: OMEP20TA93 PO (13:18)
== END 2017-06-12 13:57 | disposition home or self-care (01) ==
LOC: PHEFT 12:27
DX: S61.216A Laceration without foreign body of right little finger without damage to nail, initial encounter (principal); W26.9XXA Contact with unspecified sharp object(s), initial encounter; I48.91 Unspecified atrial fibrillation; I10 Essential (primary) hypertension; E11.9 Type 2 diabetes mellitus without complications; Z85.3 Personal history of malignant neoplasm of breast
CPT/HCPCS: 99283